=== PATIENT | female | born 1950 | race Caucasian/White ===

== ENCOUNTER 2017-02-19 02:05 | Emergency (ER) | payer MEDICARE ==
[~2017-02-19] VITALS: Ht 160 cm; Wt 68.0 kg
[2017-02-19 02:09] VITALS: BP_SYST 152
[2017-02-19] MEDS ORDERED: NACL 0.9% 1,000 ML IV ONE (02:15)
[2017-02-19] MEDS ORDERED: ONDANSETRON HCL 4 MG/2 ML VIAL IVP ONE (02:30)
[2017-02-19 02:45] LABS: BILIRUBIN,URINE NEGATIVE (NEGATIVE); CLARITY/URINE CLEAR (CLEAR); COLOR,URINE YELLOW (YELLOW); GLUCOSE,URINE NEGATIVE (NEGATIVE); KETONES,URINE TRACE (NEGATIVE); LEUKOCYTE ESTERASE ,URINE NEGATIVE (NEGATIVE); NITRITE, URINE NEGATIVE (NEGATIVE); PH,URINE 5.5 (5.0-8.0); PROTEIN URINE NEGATIVE (NEGATIVE); UROBILINOGEN,URINE 0.2 (0.2-1.0)
[2017-02-19 02:47] LABS: BLOOD, URINE TRACE (NEGATIVE)
[2017-02-19 03:00] LABS: BACTERIA,URINE FEW /HPF (None Seen); RBC,URINE 0-3 /HPF (0-3); WBC,URINE 0-3 /HPF (0-3)
[2017-02-19 03:10] VITALS: BP_SYST 138
== END 2017-02-19 03:10 | disposition home or self-care (01) ==
LOC: SED 02:05
DX: R00.2 Palpitations (principal); R11.0 Nausea; R42 Dizziness and giddiness; Z88.8 Allergy status to other drugs, medicaments and biological substances
CPT/HCPCS: 81000; 93005; 96361; 96374; 99285; J2405; J7030